=== PATIENT | male | born 1985 | race Hispanic/Latino ===

== ENCOUNTER → 2018-09-26 | Day surgery (SDC) | payer BC ==
[~2018-09-26] MED LIST: CEFTRIAXONE SOD 1 GM/NS 50 ML 50 ML IV ONE; DEXAMETHASONE SOD PHOS INJ 4 MG/ML VIAL ONE; FENTANYL CITRATE/PF 100MCG/2 ML INJ ONE; HYDROCODON-ACE1 EA11 PO; IOPAMIDOL 610MG/1ML 300 MG/ML VIAL IV ONE; LIDOCAINE HCL 2% LOCAL INJ 5 ML SDV VIAL INJ ONE; MEPERIDINE HCL INJ 25 MG/ML VIAL ONE; MIDAZOLAM HCL 2 MG/2 ML VIAL ONE; NITROFURANTOIN100 MG PO; ONDANSETRON HCL INJ 2MG/ML 2ML 2 MG/ML VIAL ONE; PROPOFOL IV EMULSION 10 MG/ML 20 ML VIAL ONE; SEVOFLURANE INHAL SOLN 250 ML PEN BTL ONE
--- OUTSIDE RECORDS SUMMARY | 2018-09-26 09:49 | XMS REPORT ---
Author Author [facility] Address Unknown Phone Unavailable Care Team Providers Care Curve Saw Operator Name Role Phone Unavailable Unavailable Payers Payer Name Policy Type Policy Number Effective Date Expiration Date Problems This patient has no known problems. Allergies, Adverse Reactions, Alerts Allergy Name Allergy Type Status Severity Reaction(s) Onset Date Inactive Date Treating Clinician Comments No Known Allergies DA Active U 2018-08-19 00:00:00 Medications This patient has no known medications. Results Test Description Test Time Test Comments Text Results Atomic Results Result Comments BASIC METABOLIC PANEL 2018-08-29 07:21:00 SODIUM (test code=NA) 137 mmol/L 136-145 POTASSIUM (test code=K) 4.0 mmol/L 3.5-5.1 CHLORIDE (test code=CL) 101.0 mmol/L 98-107 CARBON DIOXIDE (test code=CO2) 27.0 mmol/L 21-32 ANION GAP (test code=GAP) 13.0 10-20 GLUCOSE (test code=GLU) 122 mg/dL 74-106 BLOOD UREA NITROGEN (test code=BUN) 10 mg/dL 7-18 GLOMERULAR FILTRATION RATE (test code=GFR) > 60 mL/min >=60 Estimated GFR by using Modified MDRD formula.Chronic kidney disease is defined as either kidney damageor GFR <60 mL/min/1.73 m2 for >3 months. CREATININE (test code=CREAT) 1.10 mg/dL 0.7-1.3 BUN/CREATININE RATIO (test code=BUN/CREA) 9.1 10-20 CALCIUM (test code=CA) 9.4 mg/dL 8.5-10.1 BASIC METABOLIC [id number] 07:14:00* Test Item Value Reference Range Comments SODIUM (test code=NA) 137 mmol/L 136-145 POTASSIUM (test code=K) 4.0 mmol/L 3.5-5.1 CHLORIDE (test code=CL) 101.0 mmol/L 98-107 CARBON DIOXIDE (test code=CO2) mmol/L 21-32 ANION GAP (test code=GAP) 10-20 GLUCOSE (test code=GLU) mg/dL 74-106 BLOOD UREA NITROGEN (test code=BUN) mg/dL 7-18 GLOMERULAR FILTRATION RATE (test code=GFR) mL/min >=60 CREATININE (test code=CREAT) mg/dL 0.7-1.3 BUN/CREATININE RATIO (test code=BUN/CREA) 10-20 CALCIUM (test code=CA) mg/dL 8.5-10.1 - XR UROGRAM [id number] 14:41:00 FAX: Lars Casillas [phone] [place]: St: ADM Name: ABNER MORAN [facility] : [birth year] Age/S: 33/M [address] [facility] Unit #: [id number] Loc: V.3044 [place] [address] Phys: Lars Ferreira [facility] Acct: [id number] Dis Date: Status: ADM IN PHONE #: [phone] Exam Date: 08/28/2018 1025 FAX #: [phone] Reason: SURGERY EXAMS: CPT CODE: [id number] XR UROGRAM ANTEGRADE [id number] REASON FOR EXAM:SURGERY PROCEDURE: Retrograde ureterogram FINDINGS: Retrograde ureterogram images obtained in the operating room were provided for interpretation. Please refer to Dr. Ferreira operation report for detail of the procedure. Fluoroscopic time: 96 seconds Radiation dose: 44.8 mGy IMPRESSION: Right ureterogram and right stone extraction performed by Dr. Ferreira. Electronically Signed by Shae Dupont on 0 08/28/2018 at 1441 Reported and signed by: Almas Dupont M.D. CC: Lars Ferreira M.D. Technologist: Nena Ceballos(Pamela) Trnscrd Date/Time/By: 08/28/2018 (1441) : By: EarnestVTL Orig Print D/T: S: 08/29/2018 (0910) PAGE 1 Signed [facility] [id number] 15:52:00 Name: ABNER ACEVEDO [facility] : 1985 Age/S: 33 / M [address] Unit #: [id number] Loc: [place] [address] Phys: Coral Friend MD Acct: [id number] Di s Date: [id number] Status: DIS IN PHONE #: Exam Date: 08/23/2018 1040 FAX #: Reason: EXAMS: CPT CODE: [id number] [facility] CATH 61074 Fluoro Time: 153 DAP (Gy m2): 3.63 Air Kerma (mGy): 55 EXAM: Multi ultrasound retroperitoneum limited and antegrade nephrostogram and ureterogram with sonographic and fluoroscopic guidance; percutaneous nephrostomy; INFORMATION : Patient with history of right flank pain. CT has demonstrated an obstruc ting calculus at the right UPJ, measuring 10 mm in diameter and 900 Hounsf ield units in density. The second stone, also measuring 10 mm in diameter and about 1100 Hounsfield units in density is seen in the lower pole calyx . As demonstrated on a recent retrograde urogram the patient has a d uplicated renal collecting system bilaterally. The upper pole moiety on th e right is nondilated and a ureteral stent is positioned within this colle cting system. The lower collecting system on the right is hydronephrotic s econdary to the large stone at the UPJ. The patient is dramatic but not se ptic and has been referred for percutaneous nephrostomy in preparation for percutaneous nephrolithotomy. TECHNIQUE AND FINDINGS: Benefits and risks of procedure including risks of hemorrhage, infection and possible kidney injury, were explained to the patient and informed con sent was obtained. Ultrasound confirmed hydronephrosis of the lower portio n of the right kidney. Fluoroscopic evaluation showed the ureteral s tent in place with its tip in the upper moiety of the right kidney. Appare ntly there has been migration of stones with the stone, demonstrated at th e UPJ on the recent CT scan now apparently having migrated into the proxim al lower ureter and the previous calyceal stone now being positioned at th e UPJ. General anesthesia was initiated and the patient's skin in th e right flank region was prepped and draped in the usual sterile fashion. Marcaine was administered and using real-time sonographic guidance an inferior calyx was accessed with a 22-gauge Chiba needle. Slightly cloudy urine was drained and was sent to the lab. Small amount of contrast mate rial was injected demonstrating a dilated lower collecting system of the r ight kidney and also demonstrating dilatation of the proximal portion of t he right ureter to the point of the obstructing ureteral stone. Usin g the coaxial 3 Trinidadian/6 Trinidadian AccuStick system 035 guidewire was inserte d and a 10 Trinidadian pigtail nephrostomy tube was then inserted over the wire . Contrast material was injected showing a well-positioned tube with its pigtail coiled within the dilated calyx. The catheter was sutured to the skin and connected to a drainage bag. No complications. PAGE 1 Signed Report (CONTINUED) Name: ABNER ACEVEDO [facility] : 1985 Ag e/S: 33 / M [address] [facility] Unit #: [id number] Loc: [place] [address] Phys: Roselyn Friend MD Acct: [id number] Dis Date: Status: DIS IN PHONE #: [phone] Exam Date: 08/23/2018 1040 FAX #: [phone] Reason: EXAMS: CPT CODE: [id number] [facility] CATH 24190 Fluoro Time: 153 DAP (Gy m2): 3.63 Air Kerma (mGy): 55 <Continued> IMPRESSION: 1. Limited ultrasound confirmed presence of hydronephrosis of the lower portion of the right kidney. 2. Successful right percutaneous nephrostomy using sonographic and fluoroscopic guidance. 3. Interim distal migration compared with the recent CT scan with an obstructing UPJ stone and a second stone positioned in the proximal right ureter. Fluoroscopy Time: 153 sec CAK : 55 mGy DAP : 3630 mGy sq cm at 1552 Reported and signed by: Scot Pierre M.D. CC: Roselyn Friend MD Technologist: Mikayla Torres RT(R) Trnscb Date/Time: 08/26/2018 (0361) [email or web address] Orig Print D/T: S: 08/26/2018 (0277) PAGE 2 Signed Report - USG NDL PLACEMENT (Bxg/Asp)2018-08-26 15:52:00 Name: ABNER ACEVEDO [facility] : 1985 Age/S: 33 / M [address] Unit #: [id number] Loc: [place] [address] Phys: Scot Pierre MD Acct: [id number] Dis Date: [id number] Status: DIS IN PHONE #: [phone] Exam Date: 08/23/2018 1030 FAX #: [phone] Reason: RT NEPHROSTOMY EXAMS: CPT CODE: [id number] USG NDL PLACEMENT (Bxg/Asp) [id number] EXAM: Multi ultrasound retroperitoneum limited and antegrade nephrostogram and ureterogram with sonographic and fluoroscopic guidance; percutaneous nephrostomy; INFORMATION: Patient with history of right flank pain. CT has demonstrated an obstructing calculus at the right UPJ, measuring 10 mm in diameter and 900 Hounsfield units in density. The second stone, also measuring 10 mm in diameter and about 1100 Hounsfield units in density is seen in the lower pole calyx. As demonstrated on a recent retrograde urogram the patient has a duplicated renal collecting system bilaterally. The upper pole moiety on the right is nondilated and a ureteral stent is positioned within this collecting system. The lower collecting system on the right is hyd ronephrotic secondary to the large stone at the UPJ. The patient is dramat ic but not septic and has been referred for percutaneous nephrostomy in [facility] for percutaneous nephrolithotomy. TECHNIQUE AND FI NDINGS: Benefits and risks of procedure including risks of hemorrhage, infection and possible kidney injury, were explained to the patient and informed consent was obtained. Ultrasound confirmed hydronephrosis of the lower portion of the right kidney. Fluoroscopic evaluation showed t he ureteral stent in place with its tip in the upper moiety of the right k idney. Apparently there has been migration of stones with the stone, demon strated at the UPJ on the recent CT scan now apparently having migrated in to the proximal lower ureter and the previous calyceal stone now being pos itioned at the UPJ. General anesthesia was initiated and the patient 's skin in the right flank region was prepped and draped in the usual ster ile fashion. Marcaine was administered and using real-time sonographic vibha dance an inferior calyx was accessed with a 22-gauge Chiba needle. Slightl y cloudy urine was drained and was sent to the lab. Small amount of contrast material was injected demonstrating a dilated lower collecting sy stem of the right kidney and also demonstrating dilatation of the proximal portion of the right ureter to the point of the obstructing ureteral ston e. Using the coaxial 3 Trinidadian/6 Trinidadian AccuStick system 035 guidewire was inserted and a 10 Trinidadian pigtail nephrostomy tube was then inserted over the wire. Contrast material was injected showing a well-positioned tu be with its pigtail coiled within the dilated calyx. The catheter wa s sutured to the skin and connected to a drainage bag. PAGE 1 Signed Report (CONTINUED) Name: ABNER ACEVEDO [facility] : 1985 Age/S: 33 / M [address] [facility] Unit #: [id number] Loc: [place] [address] Phys: Scot Pierre MD Acct: [id number] Dis Date: [id number] Status: DIS IN PHONE #: [phone] Exam Date: 08/23/2018 1030 FAX #: [phone] Reason: RT NEPHRO STOMY EXAMS: CPT CODE: [id number] USG NDL PLACEMENT (Bxg/Asp) 45122 <Continued> No complications. IMPRESSION: 1. Limited ultrasound confirmed presence of hydronephrosis of the lower portion of the right kidney. 2. Successful right percutaneous nephrostomy using sonographic and fluoroscopic guidance. 3. Interim distal migration compared with the recent CT scan with an obstructing UPJ stone and a second stone positioned in the proximal right ureter. Fluoroscopy Time: 153 sec CAK : 55 mGy DAP : 3630 mGy sq cm at 1552 Reported and signed by: Scot Pierre M.D. CC: Roselyn Friend MD Technologist: JAN KENNY RT(R),RDMS Trnscb Date/Time: 08/26/2018 (1552) [email or web address] Orig Print D/T: S: 08/26/2018 (9627) Probe: PAGE 2 Signed Report - US RETRO [id number] 15:52:00 Name: ABNER ACEVEDO [facility] : 1985 Age/S: 33 / M [address] [facility] Unit #: [id number] Loc: [place] [address] Phys: Jonathan Pierre MD Acct: [id number] Di s Date: [id number] Status: DIS IN PHONE #: Exam Date: 08/23/2018 1030 FAX #: [phone] Reason: RT NEPHROSTOMY EXAMS: CPT CODE: [id number] RETRO LTD 95247 EXAM: Multi ultrasound re troperitoneum limited and antegrade nephrostogram and ureterogram with son ographic and fluoroscopic guidance; percutaneous nephrostomy; INFORMATION: Patient with history of right flank pain. CT has demonstrat ed an obstructing calculus at the right UPJ, measuring 10 mm in diameter a nd 900 Hounsfield units in density. The second stone, also measuring 10 mm in diameter and about 1100 Hounsfield units in density is seen in the low er pole calyx. As demonstrated on a recent retrograde urogram the patient has a duplicated renal collecting system bilaterally. The upper pole moiet y on the right is nondilated and a ureteral stent is positioned within this collecting system. The lower collecting system on the right is hyd ronephrotic secondary to the large stone at the UPJ. The patient is dramat ic but not septic and [facility]. TECHNIQUE AND FI NDINGS: Benefits and risks of procedure including risks of hemorrhage, infection and possible kidney injury, were explained to the patient and informed consent was obtained. Ultrasound confirmed hydronephrosis of the lower portion of the right kidney. Fluoroscopic evaluation showed t he ureteral stent in place with its tip in the upper moiety of the right k idney. Apparently there has been migration of stones with the stone, demon strated at the UPJ on the recent CT scan now apparently having migrated in to the proximal lower ureter and the previous calyceal stone now being pos itioned at the UPJ. General anesthesia was initiated and the patient 's skin in the right flank region was prepped and draped in the usual ster ile fashion. Marcaine was administered and using real-time sonographic vibha dance an inferior calyx was accessed with a 22-gauge Chiba needle. Slightl y cloudy urine was drained and was sent to the lab. Small amount of contrast material was injected demonstrating a dilated lower collecting sy stem of the right kidney and also demonstrating dilatation of the proximal portion of the right ureter to the point of the obstructing ureteral ston e. Using the coaxial 3 Trinidadian/6 Trinidadian AccuStick system 035 guidewire was inserted and a 10 Trinidadian pigtail nephrostomy tube was then inserted over the wire. Contrast material was injected showing a well-positioned tu be with its pigtail coiled within the dilated calyx. The catheter wa s sutured to the skin and connected to a drainage bag. PAGE 1 Signed Report (CONTINUED) Name: ABNER ACEVEDO [facility] : 1985 Age/S: 33 / M [address] [facility] Unit #: [id number] Loc: [place] [address] Phys: Scot Pierre MD Acct: [id number] Dis Date: [id number] Status: DIS IN PHONE #: [phone] Exam Date: 08/23/2018 1030 FAX #: [phone] Reason: RT NEPHRO STOMY EXAMS: CPT CODE: [id number] [facility] [address] <Continued> No complications. IMPRESSION: 1. Limited ultrasound confirmed presence of hydronephrosis of the lower portion of the right kidney. 2. Successful right percutaneous nephrostomy using sonographic and fluoroscopic guidance. 3. Interim distal migration compared with the recent CT scan with an obstructing UPJ stone and a second stone positioned in the proximal right ureter. Fluoroscopy Time: 153 sec CAK : 55 mGy DAP : 3630 mGy sq cm at 1552 Reported and signed by: Scot Pierre M.D. CC: Roselyn Friend MD Technologist: JAN KENNY RT(R),RDMS Trnmnb Date/Time: 08/26/2018 (1552) Jen Orig Print D/T: S: 08/26/2018 (1150) Probe: PAGE 2 Signed Report BASIC METABOLIC [id number] 07:18:00* Test Item Value Reference Range Comments SODIUM (test code=NA) 142 mmol/L 136-145 POTASSIUM (test code=K) 3.7 mmol/L 3.5-5.1 CHLORIDE (test code=CL) 108.0 mmol/L 98-107 CARBON DIOXIDE (test code=CO2) 27.0 mmol/L 21-32 ANION GAP (test code=GAP) 10.7 10-20 GLUCOSE (test code=GLU) 97 mg/dL 74-106 BLOOD UREA NITROGEN (test code=BUN) 15 mg/dL 7-18 GLOMERULAR FILTRATION RATE (test code=GFR) > 60 mL/min >=60 Estimated GFR by using Modified MDRD formula.Chronic kidney disease is defined as either kidney damageor GFR <60 mL/min/1.73 m2 for >3 months. CREATININE (test code=CREAT) 1.10 mg/dL 0.7-1.3 BUN/CREATININE RATIO (test code=BUN/CREA) 13.6 10-20 CALCIUM (test code=CA) 9.0 mg/dL 8.5-10.1 PROTHROMBIN [id number] 07:13:00* Test Item Value Reference Range Comments PROTHROMBIN TIME PATIENT (test code=PTP) 12.0 seconds 9.0-14.0 INTERNATIONAL NORMAL RATIO (test code=INR) 1.0 0.8-1.2 The therapeutic range for oral anticoagulant therapy formost indications is an international normalized ratio (INR)of between 2.0 and 3.0. The recommended therapeutic INRrange for various clinical situations is listed below: Clinical Situation INR range Pulmonary e mbolism treatment (2.0-3.0)Venous thrombosis treatmentVenous thrombosis prophylaxis (high risk surgery)Prevention of systemic embolism from: Acute myocardial infarction Valvular heart disease Atrial fibrillation Mechanical prosthetic heart valves (2.5-3.5) IS PATIENT ON ANTICOAGULANTS? NCOMMENTS TO KENNEL HELPER: NEED FOR SURGERY THROMBOPLASTIN TIME [id number] 07:13:00* Test Item Value Reference Range Comments THROMBOPLASTIN TIME PARTIAL (test code=PTT) 31.3 seconds 25.0-36.5 IS PATIENT ON ANTICOAGULANTS? NCOMMENTS TO KENNEL HELPER: NEED FOR SURGERYCBC W/AUTO [id number] 07:13:00* Test Item Value Reference Range Comments WHITE BLOOD CELL (test code=WBC) 11.8 K/mm3 4.5-12.5 RED BLOOD CELL (test code=RBC) 4.90 mill/mm3 4.0-5.8 HEMOGLOBIN (test code=HGB) 15.1 gram/dL 13.0-17.5 HEMATOCRIT (test code=HCT) 44.9 % 42.0-52.0 MEAN CELL VOLUME (test code=MCV) 91.6 fL 80-98 MEAN CELL HGB (test code=MCH) 30.8 picogram 27.0-33.0 MEAN CELL HGB CONCETRATION (test code=MCHC) 33.6 gram/dL 33.0-36.0 RED CELL DISTRIBUTION WIDTH (test code=RDW) 12.7 % 11.6-16.2 RED CELL DISTRIBUTION WIDTH SD (test code=RDW-SD) 42.7 fL 37.0-51.0 PLATELET COUNT (test code=PLT) 295 K/mm3 150-450 MEAN PLATELET VOLUME (test code=MPV) 10.4 fL 6.7-11.0 NEUTROPHIL % (test code=NT%) 55.5 % 39.0-69.0 IMMATURE GRANULOCYTE % (test code=IG%) 0.3 % 0.0-5.0 LYMPHOCYTE % (test code=LY%) 35.0 % 25.0-55.0 MONOCYTE % (test code=MO%) 8.5 % 0.0-10.0 EOSINOPHIL % (test code=EO%) 0.5 % 0.0-5.0 BASOPHIL % (test code=BA%) 0.2 % 0.0-1.0 NUCLEATED RBC % (test code=NRBC%) 0.0 % 0-0 NEUTROPHIL # (test code=NT#) 6.56 K/mm3 1.8-7.7 IMMATURE GRANULOCYTE # (test code=IG#) 0.03 x10 3/uL 0-0.03 LYMPHOCYTE # (test code=LY#) 4.14 K/mm3 1.0-5.0 MONOCYTE # (test code=MO#) 1.01 K/mm3 0-0.8 EOSINOPHIL # (test code=EO#) 0.06 K/mm3 0.0-0.5 BASOPHIL # (test code=BA#) 0.02 K/mm3 0.0-0.2 NUCLEATED RBC # (test code=NRBC#) 0.00 K/mm3 0.0-0.1 MANUAL DIFF REQUIRED (test code=MDIFF) NO BASIC METABOLIC [id number] 07:12:00* Test Item Value Reference Range Comments SODIUM (test code=NA) 142 mmol/L 136-145 POTASSIUM (test code=K) 3.7 mmol/L 3.5-5.1 CHLORIDE (test code=CL) 108.0 mmol/L 98-107 CARBON DIOXIDE (test code=CO2) mmol/L 21-32 ANION GAP (test code=GAP) 10-20 GLUCOSE (test code=GLU) mg/dL 74-106 BLOOD UREA NITROGEN (test code=BUN) mg/dL 7-18 GLOMERULAR FILTRATION RATE (test code=GFR) mL/min >=60 CREATININE (test code=CREAT) mg/dL 0.7-1.3 BUN/CREATININE RATIO (test code=BUN/CREA) 10-20 CALCIUM (test code=CA) mg/dL 8.5-10.1 CBC W/AUTO [id number] 07:11:00* Test Item Value Reference Range Comments WHITE BLOOD CELL (test code=WBC) K/mm3 4.5-12.5 RED BLOOD CELL (test code=RBC) mill/mm3 4.0-5.8 HEMOGLOBIN (test code=HGB) 15.1 gram/dL 13.0-17.5 HEMATOCRIT (test code=HCT) 44.9 % 42.0-52.0 MEAN CELL VOLUME (test code=MCV) fL 80-98 MEAN CELL HGB (test code=MCH) picogram 27.0-33.0 MEAN CELL HGB CONCETRATION (test code=MCHC) gram/dL 33.0-36.0 RED CELL DISTRIBUTION WIDTH (test code=RDW) % 11.6-16.2 RED CELL DISTRIBUTION WIDTH SD (test code=RDW-SD) fL 37.0-51.0 PLATELET COUNT (test code=PLT) K/mm3 150-450 MEAN PLATELET VOLUME (test code=MPV) fL 6.7-11.0 NEUTROPHIL % (test code=NT%) % 39.0-69.0 IMMATURE GRANULOCYTE % (test code=IG%) % 0.0-5.0 LYMPHOCYTE % (test code=LY%) % 25.0-55.0 MONOCYTE % (test code=MO%) % 0.0-10.0 EOSINOPHIL % (test code=EO%) % 0.0-5.0 BASOPHIL % (test code=BA%) % 0.0-1.0 NEUTROPHIL # (test code=NT#) K/mm3 1.8-7.7 LYMPHOCYTE # (test code=LY#) K/mm3 1.0-5.0 MONOCYTE # (test code=MO#) K/mm3 0-0.8 EOSINOPHIL # (test code=EO#) K/mm3 0.0-0.5 BASOPHIL # (test code=BA#) K/mm3 0.0-0.2 - XR UROGRAM [id number] 12:44:00 FAX: Roselyn Hardy MD [phone] [place]: B St: ADM Name: ABNER MORAN [facility] : [birth year] Age/S: 33/M [address] Unit #: [id number] Loc: V.[address] [place] [id number] Phys: Roselyn Friend MD Acct: [id number] Dis Date: Status: ADM IN PHONE #: [phone] Exam Date: 08/21/2018 1230 FAX #: [phone] Reason: KIDNEY STONES EXAMS: CPT CODE: [id number] XR UROGRAM RETRO 80147 TECHNIQUE - XR UROGRAM RETRO . COMPARISON: None provided. HISTORY: 33 years Male KIDNEY STONES FINDINGS: 72.8 seconds of fluoroscopy time. 21.09 total dose. 7 images. Contrast in the collecting system bilaterally. Duplicated left-sided collecting system. IMPRESSION: 72.8 seconds of fluoroscopy time. 21.09 total dose. 7 images. Contrast in the collecting system bilater ally. Duplicated left-sided collecting system. Electronicall y Signed by Storm Gaspar M.D. on 08/21/2018 at 7839 Report ed and signed by: Storm Gaspar M.D. CC: Roselyn Friend MD Technologist: Destini KNAPP(R) Trnscrd Date/Time/By: 08/21/2018 (1319) : By: Vahid Orig Print D/T: S: 08/21/2018 (0864) PAGE 1 Signed Report [id number] 08:36:00* Test Item Value Reference Range Comments GLUBED (test code=GLUBED) 110 mg/dL 74-106 Performed by certified casting operator helper at [facility]3] - CT ABD PELVIS [id number] 00:54:00 Name: ABNER ACEVEDO [facility] : 1985 Age/S: 33 / M [address] Unit #: [id number] Loc: [place] [address] Phys: Stepan Stevenson DO Acct: [id number] Dis Date: Status: REG ER PHONE #: [phone] Exam Date: 08/20/201835 FAX #: [phone] Reason: RLQ/right flank pain EXAMS: CPT CODE: [id number] CT ABD PELVIS W/CONT 82117 CT abdomen and pelvis with IV contrast. Indication: Right lower quadrant pain Location: R16 Comparison: None available Technique: CT images of the abdomen and pelvis were obtained from the diaphragm to the pubic symphysis after the administration of intravenous contrast contrast. Coronal reformats are provided. One or more of the following dose reduction techniques were used: Automated exposure control, adjustment of the mA and/or kV according to patient size, and/or utilization of iterative reconstruction technique. Findings: Lungs bases: Unremarkable. Liver: Unremarkable. Gallbladder: Unremarkable. Pancreas: Unremarkable. Spleen: Unremarkable. Adrenal glands: Unremarkable. Kidneys: There appears to be a severe right hydronephrosis secondary to a 1.1 cm stone seen within the right renal pelvis. Additional nonobstructing upper pole renal stone is seen. Bilateral renal cysts and scarring are noted. Bowel: No bowel obstruction. The rasta endix is is not well seen Peritoneum: No ascites. No free air Skeletal: No acute fracture.. Impression: There appears to be a severe right hydronephrosis secondary to a 1.1 cm stone seen within the right renal pelvis. Additional findings as detailed above PAGE 1 Signed Report (CONTINUED) Name: ABNER ACEVEDO [facility] : 1985 Age/S: 33 / M [address] [facility] Unit #: [id number] Loc: [place] [address] Phys: Stepan Stevenson DO Acct: [id number] Dis Date: Status: REG ER PHONE #: [phone] Exam Date: 08/20/201835 FAX #: [phone] Reason: RLQ/right flank pain EXAMS: CPT CODE: [id number] ABD PELVIS W/CONT 83499 <Continued > at 0054 Reported and signed by: Josie Pack M.D. CC: Stepan Stevenson DO Technologist:STORM LEE CTDI: DLP: Trnscb Date/Time: 08/20/2018 (005) [email or web address] Orig Print D/T: S: 08/20/2018 (005) PAGE 2 Signed Report BASIC METABOLIC [id number] 23:41:00* Test Item Value Reference Range Comments SODIUM (test code=NA) 140 mmol/L 136-145 POTASSIUM (test code=K) 3.9 mmol/L 3.5-5.1 CHLORIDE (test code=CL) 106.0 mmol/L 98-107 CARBON DIOXIDE (test code=CO2) 25.0 mmol/L 21-32 ANION GAP (test code=GAP) 12.9 10-20 GLUCOSE (test code=GLU) 126 mg/dL 74-106 BLOOD UREA NITROGEN (test code=BUN) 19 mg/dL 7-18 GLOMERULAR FILTRATION RATE (test code=GFR) > 60 mL/min >=60 Estimated GFR by using Modified MDRD formula.Chronic kidney disease is defined as either kidney damageor GFR <60 mL/min/1.73 m2 for >3 months. CREATININE (test code=CREAT) 1.20 mg/dL 0.7-1.3 BUN/CREATININE RATIO (test code=BUN/CREA) 15.8 10-20 CALCIUM (test code=CA) 9.3 mg/dL 8.5-10.1 HEPATIC FUNCTION [id number] 23:41:00* Test Item Value Reference Range Comments TOTAL PROTEIN (test code=PROT) 8.6 gram/dL 6.4-8.2 ALBUMIN (test code=ALB) 4.2 g/dL 3.4-5.0 GLOBULIN (test code=GLOB) 4.4 gram/dL 2.7-4.2 ALBUMIN/GLOBULIN RATIO (test code=A/G) 1.0 0.75-1.50 BILIRUBIN TOTAL (test code=BILT) 0.30 mg/dL 0.0-1.0 BILIRUBIN DIRECT (test code=BILD) 0.14 mg/dL 0.0-0.20 SGOT/AST (test code=AST) 17 IUnit/L 15-37 SGPT/ALT (test code=ALT) 36 IUnit/L 12-78 ALKALINE PHOSPHATASE TOTAL (test code=ALKP) 100 IUnit/L 45-117 Note change in reference range due to change in reagent. [id number] 23:41:00* Test Item Value Reference Range Comments LIPASE (test code=LIP) 111 U/L 73.0-393.0 URINALYSIS [id number] 23:30:00* Test Item Value Reference Range Comments UA COLOR (test code=COLU) Light-Yellow YELLOW UA APPEARANCE (test code=APPU) CLEAR CLEAR UA GLUCOSE DIPSTICK (test code=DGLUU) NEGATIVE mg/dL NEGATIVE UA BILIRUBIN DIPSTICK (test code=BILU) NEGATIVE mg/dL NEGATIVE UA KETONE DIPSTICK (test code=KETU) NEGATIVE mg/dL NEGATIVE UA SPECIFIC GRAVITY (test code=SGU) 1.026 1.001-1.035 UA BLOOD DIPSTICK (test code=RERE) 0.2 mg/dL (2+) mg/dL NEGATIVE UA PH DIPSTICK (test code=ERIBERTO) 6.0 5.0-8.0 UA PROTEIN DIPSTICK (test code=PROU) 10 (Trace) mg/dL NEGATIVE UA UROBILINIOGEN DIPSTICK (test code=URO) Normal mg/dL NEGATIVE UA NITRITE DIPSTICK (test code=ELVER) NEGATIVE NEGATIVE UA LEUKOCYTE ESTERASE W REFLEX (test code=LEUUR) NEGATIVE Titus/uL NEGATIVE UA WBC (test code=WBCU) 0-5 per HPF 0-5 UA RBC (test code=RBCU) 6-10 #/HPF 0-5 UA EPITHELIAL CELLS (test code=EPIU) None seen per HPF FEW UA BACTERIA (test code=BACU) NONE SEEN #/HPF NONE UA MUCUS (test code=MUCU) FEW #/LPF FEW Urine Source? Clean CatchBASIC METABOLIC [id number] 23:18:00* Test Item Value Reference Range Comments SODIUM (test code=NA) 140 mmol/L 136-145 POTASSIUM (test code=K) 3.9 mmol/L 3.5-5.1 CHLORIDE (test code=CL) 106.0 mmol/L 98-107 CARBON DIOXIDE (test code=CO2) mmol/L 21-32 ANION GAP (test code=GAP) 10-20 GLUCOSE (test code=GLU) mg/dL 74-106 BLOOD UREA NITROGEN (test code=BUN) mg/dL 7-18 GLOMERULAR FILTRATION RATE (test code=GFR) mL/min >=60 CREATININE (test code=CREAT) mg/dL 0.7-1.3 BUN/CREATININE RATIO (test code=BUN/CREA) 10-20 CALCIUM (test code=CA) mg/dL 8.5-10.1 HEPATIC FUNCTION [id number] 23:18:00* Test Item Value Reference Range Comments TOTAL PROTEIN (test code=PROT) gram/dL 6.4-8.2 ALBUMIN (test code=ALB) g/dL 3.4-5.0 GLOBULIN (test code=GLOB) gram/dL 2.7-4.2 ALBUMIN/GLOBULIN RATIO (test code=A/G) 0.75-1.50 BILIRUBIN TOTAL (test code=BILT) mg/dL 0.0-1.0 BILIRUBIN DIRECT (test code=BILD) mg/dL 0.0-0.20 SGOT/AST (test code=AST) IUnit/L 15-37 SGPT/ALT (test code=ALT) IUnit/L 12-78 ALKALINE PHOSPHATASE TOTAL (test code=ALKP) IUnit/L 45-117 [id number] 23:18:00* Test Item Value Reference Range Comments LIPASE (test code=LIP) U/L 73.0-393.0 CBC W/O [id number] 23:17:00* Test Item Value Reference Range Comments WHITE BLOOD CELL (test code=WBC) 14.0 K/mm3 4.5-12.5 RED BLOOD CELL (test code=RBC) 5.26 mill/mm3 4.0-5.8 HEMOGLOBIN (test code=HGB) 16.1 gram/dL 13.0-17.5 HEMATOCRIT (test code=HCT) 48.1 % 42.0-52.0 MEAN CELL VOLUME (test code=MCV) 91.4 fL 80-98 MEAN CELL HGB (test code=MCH) 30.6 picogram 27.0-33.0 MEAN CELL HGB CONCETRATION (test code=MCHC) 33.5 gram/dL 33.0-36.0 RED CELL DISTRIBUTION WIDTH (test code=RDW) 12.1 % 11.6-16.2 PLATELET COUNT (test code=PLT) 314 K/mm3 150-450 MEAN PLATELET VOLUME (test code=MPV) 9.7 fL 6.7-11.0
[2018-09-26 14:05] VITALS: BP 146/99
--- NOTE | 2018-09-26 20:25 | Operative Report ---
DATE OF PROCEDURE: 09/26/2018 SURGEON: Lars Ferreira MD PREOPERATIVE DIAGNOSIS: Right proximal ureteral stone. POSTOPERATIVE DIAGNOSIS: Right proximal ureteral stone. PROCEDURES PERFORMED: 1. Cystoscopy. 2. Right ureteroscopy with laser lithotripsy and placement of right ureteral stent. ANESTHESIA: General anesthesia. ESTIMATED BLOOD LOSS: Minimal. INDICATIONS: Mr. Sagar Stewart is a 33-year-old gentleman with a history of an obstructing right proximal ureteral stone in the lower pole unit of a duplicated system. Previous access to the lower pole ureter was difficult and the patient presently has a perc in place. He has a nephroureteral stent going from his right flank across the stone and down into the bladder. PROCEDURE IN DETAIL: The patient was brought in the operating room, placed in supine position. After administration of general anesthesia, he was placed in dorsal lithotomy position and prepped and draped in usual sterile fashion. Cystourethroscopy was performed using 20-Serbian cystoscope. The anterior and posterior urethra were noted to be normal. The prostate was completely normal in size, shape, and configuration. The bladder was entered without difficulty. Upon entrance into the bladder, the distal portion of the nephroureteral stent was seen exiting the right ureteral orifice. There was a moderate amount of edema and erythema noted in this area. The distal portion of the nephroureteral stent was grasped with alligator forceps and brought outside of the urethral meatus. A wire was then placed through this and under fluoroscopic guidance was seen to come up to the renal portion of the nephroureteral stent. The stent was then cut from the sutures in the right flank and removed in its entirety. The wire was seen to come near the exit point, but not completely anchored the flank. A 12/14 long ureteral access sheath was then placed over this wire up into the proximal ureter. Removing the nephroureteral stent was noted to move the stone into the renal pelvis. Flexible ureteroscopy was then performed. The previously described stone, which was approximately 1 cm in diameter was seen in the holmium laser and a 365 laser fiber was used to break the stone into multiple smaller fragments. The majority of the dose was noted to irrigate free as were some of the small fragments. There were no obvious large fragments that were seen to be left at the conclusion of the procedure. The ureteroscope was then removed as was the ureteral access sheath. A 7-Serbian 28 cm stent was then placed such that one coil was in the renal pelvis and the subsequent coil was in the bladder. The string was allowed to exit the urethral meatus. The cystoscope and sheath were then removed and the patient was returned to supine position. Anesthesia was reversed and he was transferred to a bed and taken to the postanesthesia care unit in good condition. Prior to transfer, a bandage was placed in the position of the stent in the right flank. MD AARON Bellamy/MODL /[id number]
== END | disposition home or self-care (01) ==
LOC: OR 09:46
PROVIDERS: ATTEND Urology
DX: N20.1 Calculus of ureter (principal); Z46.6 Encounter for fitting and adjustment of urinary device; Q62.5 Duplication of ureter; Z93.6 Other artificial openings of urinary tract status; Z68.31 Body mass index [BMI] 31.0-31.9, adult
CPT/HCPCS: 52356; C1758; C1766; C2617; J0696; J1100; J2001; J2175; J2250; J2405; J2704; J3010; Q9967